=== PATIENT | female | born 2000 | race Caucasian/White ===

== ENCOUNTER 2020-05-15 23:08 | Emergency (ER) | payer OTHER ==
[~2020-05-15] VITALS: Ht 152.4 cm; Wt 47.0 kg
[2020-05-15 23:39] LABS: BILIRUBIN,URINE NEGATIVE (NEGATIVE); CLARITY,URINE CLEAR; COLOR,URINE ORANGE; GLUCOSE, URINE (UA) NEGATIVE (NEGATIVE); KETONES,URINE 2+ (NEGATIVE); LEUKOCYTE ESTERASE ,URINE NEGATIVE (NEGATIVE); NITRITE,URINE NEGATIVE (NEGATIVE); PH,URINE 5.5 (5-9); PROTEIN,URINE 1+ (NEGATIVE)
[2020-05-15 23:43] LABS: BASOPHILS % (AUTO) 0 % (0-10); EOSINOPHILS # (AUTO) 0.3 10^3/uL (0.0-0.3); EOSINOPHILS % (AUTO) 3 % (0-10); HEMATOCRIT 36 % (35-52); HEMOGLOBIN 12.4 g/dL (11.5-16.0); LYMPHOCYTES # (AUTO) 2.9 10^3/uL (1.0-4.0); LYMPHOCYTES % (AUTO) 31 % (12-44); MEAN CORPUSCULAR HEMOGLOBIN 29 pg (25-34); MEAN CORPUSCULAR HGB CONC 34 g/dL (32-36); MEAN CORPUSCULAR VOLUME 84 fL (80-99); MEAN PLATELET VOLUME 9.6 fL (9.0-12.2); MONOCYTES # (AUTO) 0.6 10^3/uL (0.0-1.0); MONOCYTES % (AUTO) 7 % (0-12); NEUTROPHILS # (AUTO) 5.5 10^3/uL (1.8-7.8); NEUTROPHILS % (AUTO) 59 % (42-75); PLATELET COUNT 380 10^3/uL (130-400); WHITE BLOOD COUNT 9.4 10^3/uL (4.3-11.0)
[2020-05-15 23:51] LABS: BACTERIA,URINE FEW /HPF; WBC,URINE 0-2 /HPF
[2020-05-15 23:51] LABS: PROTHROMBIN TIME PATIENT 13.8 SEC (12.2-14.7)
[2020-05-15 23:54] LABS: CHLORIDE 102 MMOL/L (98-107); POTASSIUM 2.8 MMOL/L (3.6-5.0); SODIUM 138 MMOL/L (135-145)
[2020-05-15 23:56] LABS: CALCIUM 10.4 MG/DL (8.5-10.1)
[2020-05-15 23:57] LABS: GLUCOSE 121 MG/DL (70-105); TOTAL PROTEIN 8.6 GM/DL (6.4-8.2)
[2020-05-15 23:58] LABS: CARBON DIOXIDE 21 MMOL/L (21-32)
[2020-05-15 23:58] LABS: AMPHETAMINE SCREEN, URINE POSITIVE (NEGATIVE); BARBITURATE SCREEN URINE NEGATIVE (NEGATIVE); BENZODIAZEPINES SCREEN URINE NEGATIVE (NEGATIVE); CANNABINOID SCREEN, URINE POSITIVE (NEGATIVE); COCAINE SCREEN URINE POSITIVE (NEGATIVE); METHADONE STAT NEGATIVE (NEGATIVE); METHAMPHETAMINE SCREEN URINE S NEGATIVE (NEGATIVE); OPIATE SCREEN URINE NEGATIVE (NEGATIVE); OXYCODONE STAT NEGATIVE (NEGATIVE); PROPOXYPHENE STAT NEGATIVE (NEGATIVE); TRICYCLIC ANTIDEPRESSANTS SCRE NEGATIVE (NEGATIVE)
[2020-05-15 23:59] LABS: BILIRUBIN,TOTAL 0.7 MG/DL (0.1-1.0)
[2020-05-16] LABS: ALKALINE PHOSPHATASE 65 U/L (40-136)
[2020-05-16] MEDS ORDERED: LACTATED RINGERS 1,000 ML IV ONE
[2020-05-16 00:01] LABS: CREATININE SERUM 0.98 MG/DL (0.60-1.30); GFR ESTIMATED > 60
[2020-05-16 00:02] LABS: ACETAMINOPHEN < 10 UG/ML (10-30); BUN/CREATININE RATIO 13
[2020-05-16 00:03] LABS: SALICYLATE < 5.0 MG/DL (5.0-20.0)
[2020-05-16 00:04] LABS: ALANINE AMINOTRANSFERASE 15 U/L (0-55)
--- NOTE | 2020-05-16 00:06 | ED Psychosocial ---
General Chief Complaint: Substance Abuse Stated Complaint: OVERDOSE Source: patient (DIFFICULT HISTORIAN--ANXIOUS, DIFFICULT TO KEEP ON SUBJECT) Exam Limitations: intoxication (WITH DRUGS) History of Present Illness Date Seen by Provider: May 15, 2020 Time Seen by Provider: 23:17 Initial Comments PT ARRIVES VIA POV STATES SHE HAS BEEN ON A "4 DAY COCAINE BINGE" AND IS "FREAKING OUT" STATES "MY BOYFRIEND FREAKED ME OUT BECAUSE HE TOLD ME HIS COUSIN OF A COCAINE OVERDOSE" C/O FEELING LIKE HER HEART IS BEATING FAST STATES " I FEEL LIKE I'VE BEEN ON A COCAINE BINGER FOR 4 DAYS" STATES SHE HAS BEEN HAVING SEVERE ANXIETY AND PANIC ATTACKS FOR THE LAST 4 DAYS SINCE SHE HAS BEEN USING COCAINE. STATES "I ALREADY HAVE ALOT OF ANXIETY" STATES SHE HAS USED COCAINE BEFORE, BUT NEVER THIS MANY DAYS IN A ROW, BUT HAS FELT THIS WAY WHEN SHE USES IT. STATES SHE SNORTS IT, AND HAS NEVER USED IT IV PT ALSO STATES SHE USED ADDERALL A FEW DAYS AGO WELL STATES SHE SMOKES MARIJUANA, BUT NOT TODAY PT DENIES ANY SUICIDAL THOUGHTS STATES SHE WAS HOSPITALIZED LAST AUGUST AFTER OVERDOSING ON AMITRIPTYLENE--STATES "MY BOYFRIEND JUST KEPT THROWING THEM AT ME AND I KEPT TAKING THEM"--WAS HOSPITALIZED IN [place], THEN WENT TO A PSYCH UNIT IN [place] AFTER THAT. HAS NOT SEEN ANYONE FROM [facility] SINCE THEN PT STATES SHE HAS ALOT OF ANXIETY, BUT DOES NOT FEEL DEPRESSED, AND HAS NOT BEEN SUICIDAL BEFORE OR SINCE THE OVERDOSE OF AMITRIPTYLENE. NO FEVER OR RECENT ILLNESS, NO COVID SYMPTOMS OR KNOWN EXPOSURE PT IS [employer] STUDENT Allergies and Home Medications Allergies Coded Allergies: No Known Drug Allergies (Unverified , 05/15/20) Patient Home Medication List Home Medication List Reviewed: Yes Review of Systems Constitutional: no symptoms reported EENTM: no symptoms reported Respiratory: no symptoms reported Cardiovascular: see HPI; No chest pain; palpitations Gastrointestinal: no symptoms reported; No nausea, No vomiting Genitourinary: no symptoms reported LMP: May 09, 2020 Control/STD Prophylaxis: Other (NEXPLANON) Musculoskeletal: no symptoms reported Skin: no symptoms reported Psychiatric/Neurological: See HPI Past Hdzucfz-Shkjjt-Dexcur Hx Past Med/Social Hx: Reviewed and Corrections made Patient Social History Alcohol Use: Denies Use Drug of Choice: COCAINE, THC Smoking Status: Current Everyday Smoker Type Used: Electronic/Vapor Recent Hopitalizations: No Substance type: Misuse of prescript meds, Marijuana, Other (COCAINE, ADDERALL) Immunizations Up To Date Tetanus Booster (TDap): Less than 5yrs PED Vaccines UTD: Yes Seasonal Allergies Seasonal Allergies: No Past Medical History Surgeries: No Respiratory: No Cardiac: No Neurological: No Genitourinary: No Gastrointestinal: No Musculoskeletal: No Endocrine: No HEENT: No Cancer: No Psychosocial: Yes (OVERDOSE OF AMITRIPTYLENE 08/2019-HOSPITALIZED IN [place]) Anxiety, Depression Integumentary: No Blood Disorders: No Adverse Reaction/Blood Tranf: No Physical Exam Vital Signs - First Documented 05/15/20 23:16 Temp 36.7 Pulse 145 Resp 20 B/P (MAP) 160/96 (117) Pulse Ox 99 O2 Delivery Room Air Capillary Refill : Height, Weight, BMI Height: '" Weight: lbs. oz. kg; BMI Method: General Appearance: no apparent distress, thin, other (ANXIOUS, TALKS RAPIDLY NON-STOP, DIFFICULTY KEEPING ON SUBJECT OR COMPLETING THOUGHTS) HEENT: PERRL/EOMI Neck: normal inspection Respiratory: normal breath sounds, no respiratory distress, no accessory muscle use Cardiovascular: no edema, no murmur, tachycardia Gastrointestinal: non tender, soft Extremities: normal inspection, normal capillary refill Neurologic/Psychiatric: lay out and detail drafter II-XII nml as tested, no motor/sensory deficits, alert, oriented x 3, other (ANXIOUS) Appearance/Memory: neat Behavior/Eye Contact: increased rate of speech Thoughts/Hallucinations: no apparent hallucination Skin: normal color, warm/dry, tattoos/piercings Progress/Results/Core Measures Results/Orders Lab Results Laboratory Tests Test 05/15/20 23:28 05/15/20 23:34 Range/Units White Blood Count 9.4 4.3-11.0 10^3/uL Red Blood Count 4.35 3.80-5.11 10^6/uL Hemoglobin 12.4 11.5-16.0 g/dL Hematocrit 36 35-52 % Mean Corpuscular Volume 84 80-99 fL Mean Corpuscular Hemoglobin 29 25-34 pg Mean Corpuscular Hemoglobin Concent 34 32-36 g/dL Red Cell Distribution Width 12.2 10.0-14.5 % Platelet Count 380 130-400 10^3/uL Mean Platelet Volume 9.6 9.0-12.2 fL Immature Granulocyte % (Auto) 0 % Neutrophils (%) (Auto) 59 42-75 % Lymphocytes (%) (Auto) 31 12-44 % Monocytes (%) (Auto) 7 0-12 % Eosinophils (%) (Auto) 3 0-10 % Basophils (%) (Auto) 0 0-10 % Neutrophils # (Auto) 5.5 1.8-7.8 10^3/uL Lymphocytes # (Auto) 2.9 1.0-4.0 10^3/uL Monocytes # (Auto) 0.6 0.0-1.0 10^3/uL Eosinophils # (Auto) 0.3 0.0-0.3 10^3/uL Basophils # (Auto) 0.0 0.0-0.1 10^3/uL Immature Granulocyte # (Auto) 0.0 0.0-0.1 10^3/uL Prothrombin Time 13.8 12.2-14.7 SEC INR Comment 1.0 0.8-1.4 Activated Partial Thromboplast Time 23 L 24-35 SEC Sodium Level 138 135-145 MMOL/L Potassium Level 2.8 L 3.6-5.0 MMOL/L Chloride Level 102 98-107 MMOL/L Carbon Dioxide Level 21 21-32 MMOL/L Anion Gap 15 H 5-14 MMOL/L Blood Urea Nitrogen 13 7-18 MG/DL Creatinine 0.98 0.60-1.30 MG/DL Estimat Glomerular Filtration Rate > 60 BUN/Creatinine Ratio 13 Glucose Level 121 H 70-105 MG/DL Calcium Level 10.4 H 8.5-10.1 MG/DL Corrected Calcium 8.5-10.1 MG/DL Magnesium Level 2.0 1.6-2.4 MG/DL Total Bilirubin 0.7 0.1-1.0 MG/DL Aspartate Amino Transf (AST/SGOT) 23 5-34 U/L Alanine Aminotransferase (ALT/SGPT) 15 0-55 U/L Alkaline Phosphatase 65 40-136 U/L Troponin I < 0.028 <0.028 NG/ML Total Protein 8.6 H 6.4-8.2 GM/DL Albumin 5.0 H 3.2-4.5 GM/DL TSH [place] Testing 0.48 0.35-4.94 UIU/ML Serum Test, Qualitative NEGATIVE NEGATIVE Salicylates Level < 5.0 L 5.0-20.0 MG/DL Acetaminophen Level < 10 L 10-30 UG/ML Serum Alcohol < 10 <10 MG/DL Urine Color ORANGE Urine Clarity CLEAR Urine pH 5.5 5-9 Urine Specific [place] >=1.030 1.016-1.022 Urine Protein 1+ H NEGATIVE Urine Glucose (UA) NEGATIVE NEGATIVE Urine Ketones 2+ H NEGATIVE Urine Nitrite NEGATIVE NEGATIVE Urine Bilirubin NEGATIVE NEGATIVE Urine Urobilinogen 0.2 < = 1.0 MG/DL Urine Leukocyte Esterase NEGATIVE NEGATIVE Urine RBC (Auto) NEGATIVE NEGATIVE Urine RBC NONE /HPF Urine WBC 0-2 /HPF Urine Squamous Epithelial Cells 10-25 H /HPF Urine Crystals NONE /LPF Urine Bacteria FEW H /HPF Urine Casts NONE /LPF Urine Mucus NEGATIVE /LPF Urine Culture Indicated NO Urine Opiates Screen NEGATIVE NEGATIVE Urine Oxycodone Screen NEGATIVE NEGATIVE Urine Methadone Screen NEGATIVE NEGATIVE Urine Propoxyphene Screen NEGATIVE NEGATIVE Urine Barbiturates Screen NEGATIVE NEGATIVE Ur Tricyclic Antidepressants Screen NEGATIVE NEGATIVE Urine Phencyclidine Screen NEGATIVE NEGATIVE Urine Amphetamines Screen POSITIVE H NEGATIVE Urine Methamphetamines Screen NEGATIVE NEGATIVE Urine Benzodiazepines Screen NEGATIVE NEGATIVE Urine Cocaine Screen POSITIVE H NEGATIVE Urine Cannabinoids Screen POSITIVE H NEGATIVE My Orders Orders - SAMMI ROLLE DO Ed Iv/Invasive Line Start (05/15/20 23:23) Ekg Tracing (05/15/20 23:23) Monitor-Rhythm Ecg Trace Only (05/15/20 23:23) Acetaminophen (05/15/20 23:23) Alcohol (05/15/20 23:23) Cbc With Automated Diff (05/15/20 23:23) Comprehensive Metabolic Panel (05/15/20 23:23) Drug Screen Stat (Urine) (05/15/20 23:23) Hcg,Qualitative Serum (05/15/20 23:23) Magnesium (05/15/20 23:23) Protime With Inr (05/15/20 23:23) Partial Thromboplastin Time (05/15/20 23:23) Thyroid Analyzer (05/15/20 23:23) Ua Culture If Indicated (05/15/20 23:23) Troponin I (05/15/20 23:23) Salicylate (05/15/20 23:23) Ed Iv/Invasive Line Start (05/15/20 23:57) Lactated Ringers (Lr 1000 Ml Iv Solution (05/16/20 00:00) Potassium Chloride (Tablet) (Klor Con Ta (05/16/20 00:30) Medications Given in ED Current Medications Medications Dose Ordered Sig/Marium Route Start Time Stop Time Status Last Admin Dose Admin Lactated Ringer's 1,000 ml @ 0 mls/hr Q0M ONCE IV 05/16/20 00:00 05/16/20 00:01 DC 05/16/20 00:22 1,000 MLS/HR Potassium Chloride 40 meq ONCE ONCE PO 05/16/20 00:30 05/16/20 00:31 DC 05/16/20 00:22 40 MEQ Vital Signs/I&O 05/15/20 05/16/20 23:16 01:05 Temp 36.7 Pulse 145 119 Resp 20 20 B/P (MAP) 160/96 (117) 142/89 Pulse Ox 99 99 O2 Delivery Room Air Room Air Progress Progress Note : Progress Note GIVEN IV FLUIDS AND ORAL POTASSIUM NO DETERIORATION IN PT'S CONDITION DURING ER STAY. Initial ECG Impression Date: May 16, 2020 Initial ECG Impression Time: 23:37 Initial ECG Rate: 115 Initial ECG Rhythm: S.Tach Initial ECG Comparisson: No Previous ECG Available Departure Impression Primary Impression: Illicit drug use Additional Impressions: Cocaine use Amphetamine abuse Marijuana abuse Hypokalemia Disposition: 01 HOME, SELF-CARE Condition: Stable Departure-Patient Inst. Referrals: PATRICIA BERRY MD Patient Instructions: ALCOHOL AND SUBSTANCE ABUSE, Drug Abuse and Drug Addiction (DC), Polysubstance Abuse (DC), Hypokalemia (DC) Add. Discharge Instructions: NO DRUGS!!!!! FOLLOW UP WITH [facility] T[facility] FOR FURTHER CARE, RETURN TO ER IF WORSE All discharge instructions reviewed with patient and/or family. Voiced understanding. SAMMI ROLLE DO May 16, 2020 00:06
[2020-05-16 00:27] LABS: TSH (THYROID ANALYZER) 0.48 UIU/ML (0.35-4.94)
[2020-05-16] MEDS ORDERED: KCL 10 MEQ TAB (MICRO K) PO ONE (00:30)
[2020-05-16 01:05] VITALS: BP 142/89
== END 2020-05-16 01:06 | disposition home or self-care (01) ==
LOC: ER 23:11
DX: F14.90 Cocaine use, unspecified, uncomplicated (principal); F19.90 Other psychoactive substance use, unspecified, uncomplicated; F15.10 Other stimulant abuse, uncomplicated; F12.10 Cannabis abuse, uncomplicated; E87.6 Hypokalemia; F41.9 Anxiety disorder, unspecified; F32.9 Major depressive disorder, single episode, unspecified; Z97.5 Presence of (intrauterine) contraceptive device
CPT/HCPCS: 80053; 80306; 81000; 83735; 84443; 84484; 84703; 85025; 85610; 85730; 93005; 93041; 99284; G0480 ×3; 36415; 80320; 80329

== ENCOUNTER 2021-10-27 15:21 | Emergency (ER) | payer OTHER ==
[~2021-10-27] VITALS: Ht 152 cm; Wt 54.0 kg
[2021-10-27] MEDS ORDERED: KETOROLAC 30 MG/ML VIAL ONE (15:58)
[2021-10-27] MEDS ORDERED: ANTACID SUSP 30 ML UDC (MYLANTA) ONE (15:58)
[2021-10-27] MEDS ORDERED: LIDOCAINE 2% VISCOUS 15 ML UDC ONE (15:58)
[2021-10-27] MEDS ORDERED: NS IV 1000 ML 1,000 ML ONE (15:59)
[2021-10-27] MEDS: ONDANSETRON 4 MG/2 ML (SDV) Z0FRAN IVP ONE ×2 (16:16→16:34)
[2021-10-27] MEDS: ONDANSETRON 4 MG/2 ML (SDV) Z0FRAN ONE ×2 (16:19→16:37)
[2021-10-27] MEDS ORDERED: ANTACID SUSP 30 ML UDC (MYLANTA) PO ONE (16:30)
[2021-10-27] MEDS ORDERED: NS IV 1000 ML 1,000 ML IV SCH (16:30)
[2021-10-27] MEDS ORDERED: LIDOCAINE 2% VISCOUS 15 ML UDC PO ONE (16:30)
[2021-10-27 16:34] LABS: BASOPHILS # (AUTO) 0.1 10^3/uL (0.0-0.1); BASOPHILS % (AUTO) 0 % (0-10); EOSINOPHILS # (AUTO) 0.1 10^3/uL (0.0-0.3); EOSINOPHILS % (AUTO) 1 % (0-10); HEMATOCRIT 39 % (35-52); LYMPHOCYTES # (AUTO) 2.2 10^3/uL (1.0-4.0); LYMPHOCYTES % (AUTO) 16 % (12-44); MEAN CORPUSCULAR HEMOGLOBIN 29 pg (25-34); MEAN CORPUSCULAR HGB CONC 33 g/dL (32-36); MEAN CORPUSCULAR VOLUME 88 fL (80-99); MEAN PLATELET VOLUME 9.8 fL (9.0-12.2); MONOCYTES # (AUTO) 0.6 10^3/uL (0.0-1.0); MONOCYTES % (AUTO) 4 % (0-12); NEUTROPHILS # (AUTO) 11.2 10^3/uL (1.8-7.8); NEUTROPHILS % (AUTO) 79 % (42-75); PLATELET COUNT 477 10^3/uL (130-400); WHITE BLOOD COUNT 14.3 10^3/uL (4.3-11.0)
[2021-10-27] MEDS ORDERED: morphine INJ 10 MG/ML 1ML (SYR OR VIAL) IVP STA (16:35)
[2021-10-27 16:47] LABS: ALBUMIN 4.7 GM/DL (3.2-4.5)
[2021-10-27 16:48] LABS: CHLORIDE 106 MMOL/L (98-107); SODIUM 145 MMOL/L (135-145)
[2021-10-27 16:49] LABS: CALCIUM 9.7 MG/DL (8.5-10.1)
[2021-10-27 16:50] LABS: GLUCOSE 154 MG/DL (70-105); TOTAL PROTEIN 8.2 GM/DL (6.4-8.2)
[2021-10-27 16:51] LABS: CARBON DIOXIDE 23 MMOL/L (21-32)
[2021-10-27 16:52] LABS: BILIRUBIN,TOTAL 0.5 MG/DL (0.1-1.0)
[2021-10-27 16:53] LABS: ALKALINE PHOSPHATASE 59 U/L (40-136); EOSINOPHILS % (MANUAL) 1 %; LYMPHOCYTES % (MANUAL) 18 %; MONOCYTES % (MANUAL) 3 %; NEUTROPHILS % (MANUAL) 78 %; RBC MORPH NORMAL
[2021-10-27 16:54] LABS: CREATININE SERUM 0.87 MG/DL (0.60-1.30); GFR ESTIMATED 97
[2021-10-27 16:55] LABS: BUN/CREATININE RATIO 13
[2021-10-27 16:57] LABS: ALANINE AMINOTRANSFERASE 16 U/L (0-55)
[2021-10-27 17:33] LABS: BILIRUBIN,URINE NEGATIVE (NEGATIVE); CLARITY,URINE CLEAR; COLOR,URINE YELLOW; GLUCOSE, URINE (UA) NEGATIVE (NEGATIVE); KETONES,URINE TRACE (NEGATIVE); LEUKOCYTE ESTERASE ,URINE NEGATIVE (NEGATIVE); NITRITE,URINE NEGATIVE (NEGATIVE); PH,URINE 6.5 (5-9); PROTEIN,URINE 1+ (NEGATIVE)
--- NOTE | 2021-10-27 17:44 | ED GI ---
General Chief Complaint: Abdominal/GI Problems Stated Complaint: N/V,ABD PAIN Source of Information: Patient Exam Limitations: No Limitations History of Present Illness Date Seen by Provider: Oct 27, 2021 Time Seen by Provider: 16:40 Initial Comments To ER with nausea vomiting and left-sided abdominal pain. She has had a few loose stools today. Symptoms started this morning. No fevers or chills. This will be her fourth episode of this within the past few months. She does smoke marijuana daily but she quit that a few weeks ago she states. She thinks this is probably related to alcohol use as she drank alcohol last night but states this is worse than a typical hangover. Her previous visits have been at [facility]. 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 She has had 2 CT scans within the past few months. Mother is at the bedside and spoke to me privately in the hallway and states that she suspects that this is related to "the drug problem". She states that all of the symptoms and medicine started when she moved here for college. Mother is an RN. Timing/Duration: 1-2 Days Severity/Quality: Moderate Location: LUQ, LLQ Radiation: No Radiation Activities at Onset: None Associated Symptoms: Nausea/Vomiting Allergies and Home Medications Allergies Coded Allergies: No Known Drug Allergies (Unverified , 05/15/20) Patient Home Medication List Home Medication List Reviewed: Yes Ondansetron (Ondansetron Odt) 8 Mg Tab.rapdis, 8 MG PO Q6H PRN for NAUSEA/VOM ITING Prescribed by: SHANEKA BECK on 10/27/211850 Promethazine HCl (Promethazine Tablet) 25 Mg Tablet, 25 MG PO Q8H PRN for NAUSEA/VOMITING Prescribed by: SHANEKA BECK on 10/27/211850 Review of Systems Review of Systems Constitutional: see HPI EENTM: No Symptoms Reported Respiratory: No Symptoms Reported Cardiovascular: No Symptoms Reported Gastrointestinal: See HPI, Abdominal Pain, Diarrhea Genitourinary: No Symptoms Reported Musculoskeletal: no symptoms reported Skin: no symptoms reported Psychiatric/Neurological: No Symptoms Reported Endocrine: No Symptoms Reported Hematologic/Lymphatic: No Symptoms Reported Past Ddkzfdo-Evyfkt-Hssssl Hx Immunizations Up To Date Tetanus Booster (TDap): Less than 5yrs PED Vaccines UTD: Yes Seasonal Allergies Seasonal Allergies: No Past Medical History Surgeries: No Respiratory: No Cardiac: No Neurological: No Genitourinary: No Gastrointestinal: No Musculoskeletal: No Endocrine: No HEENT: No Cancer: No Psychosocial: Yes (OVERDOSE OF AMITRIPTYLENE 08/2019-HOSPITALIZED IN /[facility]) Anxiety, Depression Integumentary: No Blood Disorders: No Adverse Reaction/Blood Tranf: No Physical Exam Vital Signs Capillary Refill : Height/Weight/BMI Height: '" Weight: lbs. oz. kg; 20.00 BMI Method: General Appearance: WD/WN, no apparent distress HEENT: PERRL/EOMI, normal ENT inspection Neck: non-tender, full range of motion Respiratory: no respiratory distress, no accessory muscle use Cardiovascular: regular rate, rhythm, no murmur Gastrointestinal: normal bowel sounds, soft, tenderness (left side) Extremities: normal range of motion, non-tender Neurologic/Psychiatric: alert, normal mood/affect, oriented x 3 Skin: normal color, warm/dry Progress/Results/Core Measures Results/Orders Lab Results Laboratory Tests Test 10/27/21 15:46 10/27/21 17:28 Range/Units White Blood Count 14.3 H 4.3-11.0 10^3/uL Red Blood Count 4.48 3.80-5.11 10^6/uL Hemoglobin 13.0 11.5-16.0 g/dL Hematocrit 39 35-52 % Mean Corpuscular Volume 88 80-99 fL Mean Corpuscular Hemoglobin 29 25-34 pg Mean Corpuscular Hemoglobin Concent 33 32-36 g/dL Red Cell Distribution Width 13.3 10.0-14.5 % Platelet Count 477 H 130-400 10^3/uL Mean Platelet Volume 9.8 9.0-12.2 fL Immature Granulocyte % (Auto) 1 % Neutrophils (%) (Auto) 79 H 42-75 % Lymphocytes (%) (Auto) 16 12-44 % Monocytes (%) (Auto) 4 0-12 % Eosinophils (%) (Auto) 1 0-10 % Basophils (%) (Auto) 0 0-10 % Neutrophils # (Auto) 11.2 H 1.8-7.8 10^3/uL Lymphocytes # (Auto) 2.2 1.0-4.0 10^3/uL Monocytes # (Auto) 0.6 0.0-1.0 10^3/uL Eosinophils # (Auto) 0.1 0.0-0.3 10^3/uL Basophils # (Auto) 0.1 0.0-0.1 10^3/uL Immature Granulocyte # (Auto) 0.1 0.0-0.1 10^3/uL Neutrophils % (Manual) 78 % Lymphocytes % (Manual) 18 % Monocytes % (Manual) 3 % Eosinophils % (Manual) 1 % Blood Morphology Comment NORMAL Erythrocyte Sedimentation Rate 8 0-20 MM/HR Sodium Level 145 135-145 MMOL/L Potassium Level 3.0 L 3.6-5.0 MMOL/L Chloride Level 106 98-107 MMOL/L Carbon Dioxide Level 23 21-32 MMOL/L Anion Gap 16 H 5-14 MMOL/L Blood Urea Nitrogen 11 7-18 MG/DL Creatinine 0.87 0.60-1.30 MG/DL Estimat Glomerular Filtration Rate 97 BUN/Creatinine Ratio 13 Glucose Level 154 H 70-105 MG/DL Calcium Level 9.7 8.5-10.1 MG/DL Corrected Calcium 8.5-10.1 MG/DL Total Bilirubin 0.5 0.1-1.0 MG/DL Aspartate Amino Transf (AST/SGOT) 21 5-34 U/L Alanine Aminotransferase (ALT/SGPT) 16 0-55 U/L Alkaline Phosphatase 59 40-136 U/L C-Reactive Protein High Sensitivity 0.01 0.00-0.50 MG/DL Total Protein 8.2 6.4-8.2 GM/DL Albumin 4.7 H 3.2-4.5 GM/DL Serum Test, Qualitative NEGATIVE NEGATIVE Urine Color YELLOW Urine Clarity CLEAR Urine pH 6.5 5-9 Urine Specific [place] 1.025 H 1.016-1.022 Urine Protein 1+ H NEGATIVE Urine Glucose (UA) NEGATIVE NEGATIVE Urine Ketones TRACE H NEGATIVE Urine Nitrite NEGATIVE NEGATIVE Urine Bilirubin NEGATIVE NEGATIVE Urine Urobilinogen 0.2 < = 1.0 MG/DL Urine Leukocyte Esterase NEGATIVE NEGATIVE Urine RBC (Auto) NEGATIVE NEGATIVE Urine RBC NONE /HPF Urine WBC RARE /HPF Urine Squamous Epithelial Cells 0-2 /HPF Urine Crystals NONE /LPF Urine Bacteria TRACE /HPF Urine Casts PRESENT /LPF Urine Hyaline Casts RARE /LPF Urine Granular Casts RARE /LPF Urine Mucus SMALL H /LPF Urine Culture Indicated NO Urine Opiates Screen NEGATIVE NEGATIVE Urine Oxycodone Screen NEGATIVE NEGATIVE Urine Methadone Screen NEGATIVE NEGATIVE Urine Propoxyphene Screen NEGATIVE NEGATIVE Urine Barbiturates Screen NEGATIVE NEGATIVE Ur Tricyclic Antidepressants Screen NEGATIVE NEGATIVE Urine Phencyclidine Screen NEGATIVE NEGATIVE Urine Amphetamines Screen NEGATIVE NEGATIVE Urine Methamphetamines Screen NEGATIVE NEGATIVE Urine Benzodiazepines Screen POSITIVE H NEGATIVE Urine Cocaine Screen POSITIVE H NEGATIVE Urine Cannabinoids Screen POSITIVE H NEGATIVE My Orders Orders - SHANEKA BECK APRN Ondansetron Injection (Zofran Injectio (10/27/21 16:16) Hcg,Qualitative Serum (10/27/21 16:26) Cbc With Automated Diff (10/27/21 16:26) Comprehensive Metabolic Panel (10/27/21 16:26) Ua Culture If Indicated (10/27/21 16:26) Drug Screen Stat (Urine) (10/27/21 16:26) Ed Iv/Invasive Line Start (10/27/21 16:26) Ondansetron Injection (Zofran Injectio (10/27/21 16:30) Ns Iv 1000 Ml (Sodium Chloride 0.9%) (10/27/21 16:30) Lidocaine 2% Viscous 15 Ml (Xylocaine Vi (10/27/21 16:30) Antacid Suspension (Mylanta Suspension (10/27/21 16:30) Erythrocyte Sedimentation Rate (10/27/21 16:35) Hs C Reactive Protein (10/27/21 16:35) Morphine Injection (Morphine Injection (10/27/21 16:35) Manual Differential (10/27/21 15:46) Lorazepam Injection (Ativan Injection) (10/27/21 17:57) Promethazine Injection (Phenergan Injec (10/27/21 18:30) Ns Iv 500 Ml (Sodium Chloride 0.9%) (10/27/21 18:30) Medications Given in ED Current Medications Medications Dose Ordered Sig/Marium Route Start Time Stop Time Status Last Admin Dose Admin Al Hydrox/Mg Hydrox/Simethicone 30 ml STK-MED ONCE .ROUTE 10/27/21 15:58 10/27/21 16:03 DC 10/27/21 16:05 30 ML Ketorolac Tromethamine 30 mg STK-MED ONCE .ROUTE 10/27/21 15:58 10/27/21 16:03 DC 10/27/21 16:06 30 MG Lidocaine HCl 15 ml STK-MED ONCE .ROUTE 10/27/21 15:58 10/27/21 16:03 DC 10/27/21 16:04 15 ML Lorazepam 2 mg STK-MED ONCE .ROUTE 10/27/21 17:57 10/27/21 18:00 DC 10/27/21 18:06 1 MG Ondansetron HCl 8 mg ONCE ONCE IVP 10/27/21 16:30 10/27/21 16:31 DC 10/27/21 16:16 8 MG Promethazine HCl 25 mg ONCE ONCE IVP 10/27/21 18:30 10/27/21 18:31 DC 10/27/21 18:28 25 MG Sodium Chloride 1,000 ml @ ud STK-MED ONCE .ROUTE 10/27/21 15:59 10/27/21 16:03 DC 10/27/21 16:06 1,000 MLS/HR Departure Impression Primary Impression: Polysubstance abuse Additional Impression: Abdominal pain Disposition: HOME, SELF-CARE Condition: Stable Departure-Patient Inst. Decision time for Depature: 18:50 Referrals: NO,LOCAL PHYSICIAN (PCP/Family) Primary Care Physician Patient Instructions: No Instuctions Given Scripts Promethazine HCl (Promethazine Tablet) 25 Mg Tablet 25 MG PO Q8H PRN for NAUSEA/VOMITING, #14 TAB 0 Refills Prov: SHANEKA BECK APRN 10/27/21 Ondansetron (Ondansetron Odt) 8 Mg Tab.rapdis 8 MG PO Q6H PRN for NAUSEA/VOMITING, #14 TAB Prov: SHANEKA BECK APRN 10/27/21 SHANEKA BECK APRN Oct 27, 2021 17:44
[2021-10-27 17:48] LABS: BACTERIA,URINE TRACE /HPF; SQUAMOUS EPITHELIAL CELL,UR 0-2 /HPF; WBC,URINE RARE /HPF
[2021-10-27 17:49] LABS: GRANULAR CASTS,URINE RARE /LPF; HYALINE CASTS, URINE RARE /LPF
[2021-10-27] MEDS ORDERED: LORazepam INJ 2 MG/ML (ATIVAN) VIAL ONE (17:57)
[2021-10-27 18:09] LABS: AMPHETAMINE SCREEN, URINE NEGATIVE (NEGATIVE); BARBITURATE SCREEN URINE NEGATIVE (NEGATIVE); BENZODIAZEPINES SCREEN URINE POSITIVE (NEGATIVE); CANNABINOID SCREEN, URINE POSITIVE (NEGATIVE); COCAINE SCREEN URINE POSITIVE (NEGATIVE); METHADONE STAT NEGATIVE (NEGATIVE); OPIATE SCREEN URINE NEGATIVE (NEGATIVE); OXYCODONE STAT NEGATIVE (NEGATIVE); PROPOXYPHENE STAT NEGATIVE (NEGATIVE); TRICYCLIC ANTIDEPRESSANTS SCRE NEGATIVE (NEGATIVE)
[2021-10-27] MEDS ORDERED: NS IV 500 ML 500 ML IV SCH (18:30)
[2021-10-27] MEDS ORDERED: PROMETHAZINE INJ 25 MG/ML (PHENERGAN) AMP IVP ONE (18:30)
[2021-10-27] MEDS ORDERED: PROM25TA14 PO (18:51)
[2021-10-27] MEDS ORDERED: ONDA8TAB13 PO (18:51)
[2021-10-27 19:00] VITALS: BP 110/66
== END 2021-10-27 19:05 | disposition home or self-care (01) ==
LOC: EDUNIT# 15:21 → ER 15:23
DX: R10.12 Left upper quadrant pain (principal); R10.32 Left lower quadrant pain; F19.10 Other psychoactive substance abuse, uncomplicated
CPT/HCPCS: 36415; 80053; 80306; 81000; 84703; 85007; 85027; 85652; 86141